=== PATIENT | female | born 1960 | race Caucasian/White ===

== ENCOUNTER 2019-04-01 13:21 | Emergency (ER) | payer MEDICAID ==
[~2019-04-01] VITALS: Ht 162.6 cm; Wt 99.8 kg
[2019-04-01] MEDS ORDERED: KETOROLAC TROMETHAMINE INJ 60 MG/2 ML VIAL IM ONE ×2 (14:00→14:04)
--- NOTE | 2019-04-01 14:05 | NUR ---
PT PRESENTED TO THE ER WITH A C/O LT KNEE PAIN. PT REC'D MEDICATION ORDERED AND IS AWAITING XRAY.
--- NOTE | 2019-04-01 14:45 | NUR ---
XRAY OF LEFT KNEE IN PROGRESS.
--- NOTE | 2019-04-01 14:46 | NUR ---
PT'S FRIEND IS AT THE BEDSIDE AND IS ASKING ABOUT INSURANCE.
--- NOTE | 2019-04-01 15:40 | NUR ---
Crutches dispensed. Pt instructed on proper use of crutches. Patient able to demonstrate correct use of crutches.
--- NOTE | 2019-04-01 15:43 | NUR ---
Patient discharged to home in stable condition. Written and verbal after care instructions given. Patient verbalizes understanding of instruction AND RX. PT AMBULATED OUT WITH CRUTCHES.
[2019-04-01 15:44] VITALS: BP 135/68
== END 2019-04-01 15:45 | disposition home or self-care (01) ==
LOC: ER 13:25
DX: M25.562 Pain in left knee (principal); I10 Essential (primary) hypertension
CPT/HCPCS: 73564; 96372; 99283; J1885

== ENCOUNTER 2021-03-27 23:56 | Emergency (ER) | payer MEDICAID ==
[~2021-03-27] VITALS: Ht 165.1 cm; Wt 119.7 kg
--- NOTE | 2021-03-28 | NUR ---
pt bibdaughter c/o rt eye redness and pain x30 min to arrival. Pt [id number] breathing evenly and unlabored. [place] speaking, daughter at bedside for translation. Per daughter, pt has had itchy, dry eyes x1week. Today, pt placed tea bags over eyes and thinks "maybe some tea particles entered my eye" pt attached to monitor and pox. pt given blanket and call light within reach
--- NOTE | 2021-03-28 00:34 | NUR ---
VISUAL ACUITY B 20/25 LT 20/25 RT 20/40
[2021-03-28] MEDS ORDERED: ERYT3.5O9 EACHEYE (01:08)
--- NOTE | 2021-03-28 01:18 | NUR ---
Patient discharged to home in stable condition. Written and verbal after care instructions given. Patient verbalizes understanding of instruction. pt ambulatory with a steady gait
[2021-03-28 01:23] VITALS: BP 124/74
== END 2021-03-28 01:18 | disposition home or self-care (01) ==
LOC: ER 03-28
DX: S05.02XA Injury of conjunctiva and corneal abrasion without foreign body, left eye, initial encounter (principal); S05.01XA Injury of conjunctiva and corneal abrasion without foreign body, right eye, initial encounter; I10 Essential (primary) hypertension; X58.XXXA Exposure to other specified factors, initial encounter; Y93.89 Activity, other specified; Y92.89 Other specified places as the place of occurrence of the external cause; Y99.8 Other external cause status

== ENCOUNTER 2021-12-20 19:26 | Emergency (ER) | payer MEDICAID ==
[~2021-12-20] VITALS: Ht 170.2 cm; Wt 119.7 kg
[~2021-12-20 19:26] MED LIST: ERYT3.5O9 EACHEYE
[2021-12-20] MEDS: IV NS 0.9% 500 ML BAG IV ONE (21:19)
[2021-12-20 21:31] LABS: BASOPHILS % (AUTO) 0.3 % (0.0-2.0); HEMATOCRIT 40 % (33-45); HEMOGLOBIN 13.5 g/dL (11.5-14.8); LYMPHOCYTES % (AUTO) 39.9 % (20.0-44.0); MEAN CORPUSCULAR HGB CONC 34 g/dl (31.0-36.0); MEAN CORPUSCULAR VOLUME 88 fL (82-100); MONOCYTES # (AUTO) 0.3 K/uL (0.1-1.30); MONOCYTES % (AUTO) 5.6 % (2.0-12.0); NEUTROPHILS # (AUTO) 2.6 K/uL (1.8-8.9); NEUTROPHILS % (AUTO) 53.2 % (43.0-81.0); PLATELET COUNT (AUTO) 182 K/uL (150-450); RED BLOOD CELL COUNT(AUTO) 4.56 MIL/uL (4.0-5.2); WHITE BLOOD COUNT (AUTO) 4.9 K/uL (4.3-11.0)
[2021-12-20 23:00] LABS: CALCIUM, SERUM 8.4 mg/dL (8.5-10.1); CREATININE 0.7 mg/dL (0.6-1.3)
[2021-12-20 23:07] LABS: ALBUMIN 3.4 g/dL (3.4-5.0); BILIRUBIN,DIRECT 0.1 mg/dL (0.0-0.2); BILIRUBIN,TOTAL 0.4 mg/dL (0.2-1.0); TOTAL PROTEIN, SERUM 6.7 g/dL (6.4-8.2)
[2021-12-20 23:42] VITALS: BP 115/70
== END 2021-12-20 23:43 | disposition home or self-care (01) ==
LOC: ER 19:26
DX: R55 Syncope and collapse (principal); I10 Essential (primary) hypertension; Z79.899 Other long term (current) drug therapy
CPT/HCPCS: 36415; 71045-TC; 80048-TC; 80076-TC; 85025-TC